=== PATIENT | female | born 1985 | race Two or more races ===

== ENCOUNTER 2018-09-14 11:04 | Outpatient (CLI) | payer OTHER ==
[~2018-09-14 11:04] MED LIST: CEFADROXIL500 MG PO; NABUMETONE750 MG PO; TRIPLE ANTIBIOT15 GM TP
== END 2018-09-14 11:12 | disposition home or self-care (01) ==
LOC: RX STUDY 11:04
DX: N92.5 Other specified irregular menstruation (principal)

== ENCOUNTER 2022-08-17 15:05 | Outpatient (CLI) | payer OTHER | END 2022-08-17 15:17 | disposition home or self-care (01) | LOC: SONOGRAMA 15:05 | PROVIDERS: ATTEND Internal Medicine | DX: E04.1 Nontoxic single thyroid nodule (principal) ==

== ENCOUNTER → 2022-09-08 07:35 | Outpatient (CLI) | payer OTHER | END | disposition home or self-care (01) | LOC: NUCLEAR 07:00 | PROVIDERS: ATTEND Internal Medicine | DX: E05.90 Thyrotoxicosis, unspecified without thyrotoxic crisis or storm (principal) | CPT/HCPCS: 78014; A9528 ==

== ENCOUNTER 2022-09-09 07:30 | Outpatient (CLI) | payer OTHER | END 2022-09-09 07:32 | disposition home or self-care (01) | LOC: NUCLEAR 07:30 | PROVIDERS: ATTEND Internal Medicine | DX: E05.90 Thyrotoxicosis, unspecified without thyrotoxic crisis or storm (principal) | CPT/HCPCS: 78014; A9528 ==

== ENCOUNTER 2022-10-15 09:18 | Outpatient (CLI) | payer OTHER | END 2022-10-15 09:20 | disposition home or self-care (01) | LOC: SONOGRAMA 09:18 | PROVIDERS: ATTEND Pathology Anatomic Pathology & Clinical Pathology | DX: D34 Benign neoplasm of thyroid gland (principal); E04.9 Nontoxic goiter, unspecified ==

== ENCOUNTER 2023-12-08 13:22 | Outpatient (CLI) | payer OTHER | END 2023-12-08 13:31 | disposition home or self-care (01) | LOC: SONOGRAMA 13:22 | PROVIDERS: ATTEND Internal Medicine | DX: E04.1 Nontoxic single thyroid nodule (principal) ==

== ENCOUNTER 2025-03-12 14:20 | Outpatient (CLI) | payer OTHER | END 2025-03-12 14:27 | disposition home or self-care (01) | LOC: SONOGRAMA 14:20 | PROVIDERS: ATTEND Internal Medicine | DX: E04.1 Nontoxic single thyroid nodule (principal) ==

== ENCOUNTER 2025-04-10 14:57 | Outpatient (CLI) | payer OTHER | END 2025-04-10 14:59 | disposition home or self-care (01) | LOC: RAD 14:57 | DX: M54.2 Cervicalgia (principal); M54.6 Pain in thoracic spine; M54.50 Low back pain, unspecified; M62.830 Muscle spasm of back; M54.41 Lumbago with sciatica, right side ==